=== PATIENT | male | born 1975 | race American Indian/Alaskan Native ===

== ENCOUNTER 2020-03-20 19:27 | Inpatient (IN) | payer OTHER ==
[2020-03-20] MEDS ORDERED: diphenhydrAMINE 50 MG/ML VIAL IV ONE (21:07)
[2020-03-20] MEDS ORDERED: methylPREDNISolone Sod Succinate 125 MG/2 ML INJ ONE (21:07)
[2020-03-20] MEDS ORDERED: diphenhydrAMINE 50 MG/ML VIAL ONE (21:07)
[2020-03-20] MEDS ORDERED: methylPREDNISolone Sod Succinate 125 MG/2 ML INJ IV ONE (21:07)
[2020-03-20] MEDS ORDERED: FAMOTIDINE 20 MG/2 ML INJ IV ONE ×2 (21:07)
--- NOTE | 2020-03-20 21:11 | Emergency Department Report ---
ED Allergic Reaction HPI - General Chief complaint: Allergic Reaction Stated complaint: FACE SWELLING Time Seen by Provider: 03/20/20 20:55 Source: patient Mode of arrival: Ambulatory Limitations: No Limitations - History of Present Illness Initial Comments: Patient is 44 years old male with history of hypertension. Patient presented to the ER complaining of significant upper lip swelling started this afternoon. Patient stated that he took his lisinopril when he found that his blood pressure is high. Patient is currently denying any difficulty breathing or difficulty swallowing. No shortness of breath or wheezing. Patient is alert, oriented x3 and in no acute distress. Patient with obvious upper and lower lips swelling however examination of the tongue and the oral pharyngeal area showed no evidence of swelling. MD Complaint: allergic reaction, facial swelling -: Sudden, This evening Exposure: medication Symptoms: facial swelling, lip swelling Treatment Prior to Arrival: none Previous Allergy History: none - Related Data Previous Rx's Medication Instructions Recorded Last Taken Type lisinopriL [Zestril TAB] 10 mg PO QDAY #30 tablet 10/27/15 Unknown Rx Allergies Allergy/AdvReac Type Severity Reaction Status Date / Time No Known Allergies Allergy Unverified 09/08/14 21:51 ED Review of Systems ROS: Stated complaint: FACE SWELLING Other details as noted in HPI Comment: All other systems reviewed and negative Constitutional: denies: chills, fever Respiratory: denies: cough, shortness of breath, SOB with exertion, SOB at rest, wheezing Cardiovascular: denies: chest pain, palpitations Gastrointestinal: denies: abdominal pain, nausea, vomiting Musculoskeletal: denies: back pain ED Past Medical Hx - Past Medical History Previous Medical History?: Yes Hx Hypertension: Yes Hx Asthma: Yes (pt states he outgrew) - Surgical History Past Surgical History?: Yes Additional Surgical History: hip replacement, multiple ortho surgeries - Social History Smoking Status: Current Every Day Smoker Substance Use Type: Alcohol - Medications Home Medications: Home Medications Medication Instructions Recorded Confirmed Last Taken Type lisinopriL [Zestril TAB] 10 mg PO QDAY #30 tablet 10/27/15 Unknown Rx ED Physical Exam - General Limitations: No Limitations General appearance: alert, in no apparent distress - Head Head exam: Present: atraumatic, normocephalic, normal inspection - Eye Eye exam: Present: normal appearance, PERRL - ENT ENT exam: Present: normal orophraynx, mucous membranes moist, other (Upper and lower lips swelling. No tongue swelling.) - Neck Neck exam: Present: normal inspection, full ROM. Absent: tenderness, meningismus, lymphadenopathy, thyromegaly - Respiratory Respiratory exam: Present: normal lung sounds bilaterally - Cardiovascular Cardiovascular Exam: Present: regular rate, normal rhythm, normal heart sounds - GI/Abdominal GI/Abdominal exam: Present: soft, normal bowel sounds. Absent: distended, tende rness, guarding, rebound, rigid, organomegaly, mass, bruit, pulsatile mass, hernia - Extremities Exam Extremities exam: Present: normal inspection, full ROM, normal capillary refill. Absent: pedal edema, calf tenderness - Back Exam Back exam: Present: normal inspection, full ROM. Absent: CVA tenderness (R), CVA tenderness (L) - Neurological Exam Neurological exam: Present: alert, oriented X3, CN II-XII intact - Psychiatric Psychiatric exam: Present: normal mood - Skin Skin exam: Present: warm, intact, normal color ED Course Vital Signs 03/20/20 03/20/20 20:36 23:32 Temperature 98.8 F Pulse Rate 89 66 Respiratory 18 Rate Blood Pressure 127/82 Blood Pressure 118/73 [left arm] O2 Sat by Pulse 96 94 Oximetry ED Medical Decision Making - Lab Data Result diagrams: 03/20/20 21:21 03/20/20 21:21 - Medical Decision Making Patient is 44 years old male with history of hypertension. Patient presented to the ER complaining of significant upper lip swelling started this afternoon. Patient stated that he took his lisinopril when he found that his blood pressure is high. Patient is currently denying any difficulty breathing or difficulty swallowing. No shortness of breath or wheezing. Patient is alert, oriented x3 and in no acute distress. Patient with obvious upper and lower lips swelling however examination of the tongue and the oral pharyngeal area showed no evidence of swelling. Patient received Benadryl, Solu-Medrol and Pepcid. Patient continues to have significant swelling in his lips however there is no oropharyngeal swelling. There is no airway compromise at this moment. Patient will definitely require to be admitted to ICU for observation and monitoring. I discussed the patient with Dr. Owens, he agreed to admit the patient to the hospital. Critical Care Time: Yes Critical care time in (mins) excluding proc time.: 30 Critical care attestation.: If time is entered above; I have spent that time in minutes in the direct care of this critically ill patient, excluding procedure time. ED Disposition Clinical Impression: Angioedema Disposition: OP ADMIT IP TO THIS HOSP Is pt being admited?: Yes Condition: Stable
[2020-03-20 21:46] LABS: Basophils % (Auto) 0.7 % (0.0-1.8); Eosinophils # (Auto) 0.3 K/mm3 (0.0-0.4); Eosinophils % (Auto) 4.4 % (0.0-4.3); Hematocrit 45.9 % (35.5-45.6); Hemoglobin 15.4 gm/dl (11.8-15.2); Lymphocytes # (Auto) 2.5 K/mm3 (1.2-5.4); Mean Corpuscular HGB Conc 34 % (32-34); Mean Corpuscular Volume 96 fl (84-94); Monocytes # (Auto) 0.8 K/mm3 (0.0-0.8); Monocytes % (Auto) 13.7 % (0.0-7.3); Platelet Count 234 K/mm3 (140-440); Red Cell Distribution Width 15.7 % (13.2-15.2)
[2020-03-20 22:06] LABS: BUN/Creatinine Ratio 8; Blood Urea Nitrogen 6 mg/dL (9-20); Calcium 8.9 mg/dL (8.4-10.2); Hemolysis Index 212
[2020-03-20] MEDS ORDERED: MAGNESIUM HYDROXIDE (MOM) ORAL LIQD UDC PO PRN (23:30)
[2020-03-20] MEDS ORDERED: SODIUM CHLORIDE 0.9% 1000 ML 1,000 ML IV SCH (23:30)
--- NOTE | 2020-03-20 23:37 | History and Physical Report ---
History of Present Illness Date of examination: 03/20/20 Date of admission: 03/20/2020 Chief complaint: Swelling of Lips History of present illness: 44-year-old -[place] male with known history of hypertension presenting to the emergency room today with swelling of his lips after taking lisinopril for his blood pressure today. He denies any difficulty swallowing or breathing, denies any chest pain, no nausea or vomiting, no headache or dizziness. Patient had been on lisinopril in the past and had discontinued it because his blood pressure has been under control but decided to take a dose today because his blood pressure was elevated. Swelling has improved after getting epi, solu- Medrol, Benadryl and Pepcid. Patient is being admitted for angioedema. Past History Past Medical History: hypertension, other (H/O Asthma) Past Surgical History: total hip replacement Social history: smoking (Current daily smoking), alcohol abuse Family history: no significant family history Medications and Allergies Allergies Allergy/AdvReac Type Severity Reaction Status Date / Time lisinopril AdvReac Angioedema Verified 03/21/20 04:28 Home Medications Medication Instructions Recorded Confirmed Last Taken Type Aspirin 325 mg PO ONCE 03/21/20 03/21/20 Unknown History Active Meds: Active Medications Diphenhydramine HCl (Benadryl) 25 mg IV Q6H PRN PRN Reason: Itching Sodium Chloride (Nacl 0.9% 1000 Ml) 1,000 mls @ 75 mls/hr IV DIRECT RAISA Magnesium Hydroxide (Milk Of Magnesia) 30 ml PO Q4H PRN PRN Reason: Constipation Sodium Chloride (Sodium Chloride Flush Syringe 10 Ml) 10 ml IV BID RAISA Sodium Chloride (Sodium Chloride Flush Syringe 10 Ml) 10 ml IV PRN PRN PRN Reason: LINE FLUSH Review of Systems Constitutional: no fever, no chills Ears, nose, mouth and throat: no nasal congestion, no sore throat Cardiovascular: no chest pain, no palpitations Respiratory: no cough, no shortness of breath Gastrointestinal: no abdominal pain, no nausea, no vomiting, no diarrhea Genitourinary Male: no dysuria, no hematuria, no flank pain Musculoskeletal: no neck pain, no low back pain Integumentary: no rash, no pruritis Neurological: no headaches, no confusion Psychiatric: no anxiety, no depression Exam - Constitutional Vitals: Temp Pulse Resp BP Pulse Ox 98.8 F 66 18 118/73 94 03/20/20 20:36 03/20/20 23:32 03/20/20 20:36 03/20/20 23:32 03/20/20 23:32 General appearance: Present: no acute distress, well-nourished, other (Swollen lips) - EENT Eyes: Present: PERRL, EOM intact. Absent: scleral icterus ENT: hearing intact, clear oral mucosa, dentition normal - Neck Neck: Present: supple, normal ROM - Respiratory Respiratory effort: normal Respiratory: bilateral: CTA - Cardiovascular Rhythm: regular Heart Sounds: Present: S1 & S2. Absent: gallop, systolic murmur, diastolic murmur, rub - Extremities Extremities: no ischemia, pulses intact, pulses symmetrical, No edema, Full ROM Peripheral Pulses: within normal limits - Abdominal General gastrointestinal: Present: soft, non-tender, non-distended, normal bowel sounds - Integumentary Integumentary: Present: clear, warm, dry. Absent: rash - Musculoskeletal Musculoskeletal: strength equal bilaterally - Psychiatric Psychiatric: appropriate mood/affect, intact judgment & insight, memory intact, cooperative - Neurologic Neurologic: CNII-XII intact, no focal deficits, moves all extremities Results - Labs CBC & Chem 7: 03/21/20 04:23 03/21/20 04:23 Labs: Abnormal lab results 03/20/20 03/20/20 Range/Units 21:21 21:21 Hgb 15.4 H (11.8-15.2) gm/dl Hct 45.9 H (35.5-45.6) % MCV 96 H (84-94) fl RDW 15.7 H (13.2-15.2) % Lymph % (Auto) 42.0 H (13.4-35.0) % [place] % (Auto) 13.7 H (0.0-7.3) % Eos % (Auto) 4.4 H (0.0-4.3) % Seg Neutrophils % 39.2 L (40.0-70.0) % Sodium 134 L (137-145) mmol/L Chloride 96.3 L (98-107) mmol/L BUN 6 L (9-20) mg/dL Assessment and Plan - Patient Problems (1) Angioedema Current Visit: Yes Status: Acute Plan to address problem: Patient will be closely monitored. Will place on Benadryl as needed Will discontinue GRACIELA inhibitor (2) Hypertension Current Visit: Yes Status: Acute Plan to address problem: We will monitor vital signs closely. Blood pressure appears stable. (3) DVT prophylaxis Current Visit: Yes Status: Acute (4) Full code status Current Visit: Yes Status: Acute
[2020-03-20] MEDS ORDERED: SODIUM CHLORIDE 0.9% 1000 ML 1,000 ML ONE (23:48)
[2020-03-21] MEDS ORDERED: diphenhydrAMINE 50 MG/ML VIAL ONE (01:08)
[2020-03-21] MEDS: diphenhydrAMINE 50 MG/ML VIAL IV PRN ×3 (01:09→22:27)
[2020-03-21 04:44] LABS: Basophils % (Auto) 0.4 % (0.0-1.8); Eosinophils % (Auto) 0.3 % (0.0-4.3); Hematocrit 50.5 % (35.5-45.6); Hemoglobin 16.7 gm/dl (11.8-15.2); Lymphocytes # (Auto) 0.7 K/mm3 (1.2-5.4); Lymphocytes % (Auto) 16.1 % (13.4-35.0); Mean Corpuscular HGB Conc 33 % (32-34); Mean Corpuscular Volume 97 fl (84-94); Monocytes # (Auto) 0.1 K/mm3 (0.0-0.8); Monocytes % (Auto) 2.3 % (0.0-7.3); Platelet Count 236 K/mm3 (140-440); Red Cell Distribution Width 15.8 % (13.2-15.2)
[2020-03-21 04:53] LABS: BUN/Creatinine Ratio 9; Blood Urea Nitrogen 8 mg/dL (9-20); Calcium 8.9 mg/dL (8.4-10.2); Hemolysis Index 45
[2020-03-21 04:56] LABS: INR 0.96 (0.87-1.13)
--- NOTE | 2020-03-21 08:47 | Progress Note ---
Assessment and Plan - Patient Problems (1) Angioedema Current Visit: Yes Status: Acute Plan to address problem: Patient with angioedema continue steroids Solu-Medrol 80 mg IV every 8 will change to p.o. for discharge in the a.m. Blood pressure stable discontinue lisinopril. (2) DVT prophylaxis Current Visit: Yes Status: Acute (3) Full code status Current Visit: Yes Status: Acute (4) Hypertension Current Visit: Yes Status: Acute Plan to address problem: No change in blood pressure medications he is normotensive to low now. We will follow-up with primary care physician outside for further dose titration. Subjective Date of service: 03/21/20 Principal diagnosis: Angioedema Interval history: 44-year-old male with history of hypertension presented with episode of angioedema after taking lisinopril. Patient treated with epinephrine Solu- Medrol Benadryl and Pepcid. Has had significant improvement. Patient currently resting comfortably no difficulty breathing. Eyes are really swollen lips are swollen but no tongue swelling. Patient airway is doing well. Objective - Constitutional Vitals: Vital Signs - 12hr 03/20/20 03/21/20 03/21/20 23:32 02:00 03:00 Temperature Pulse Rate 66 75 81 Respiratory Rate Blood Pressure Blood Pressure 118/73 102/79 112/71 [left arm] O2 Sat by Pulse 94 98 95 Oximetry 03/21/20 03/21/20 03/21/20 03:18 04:00 04:18 Temperature Pulse Rate 62 Respiratory Rate Blood Pressure Blood Pressure 108/73 [left arm] O2 Sat by Pulse 96 96 87 Oximetry 03/21/20 03/21/20 03/21/20 04:31 04:41 04:51 Temperature Pulse Rate Respiratory Rate Blood Pressure 108/73 108/73 108/73 Blood Pressure [left arm] O2 Sat by Pulse 98 96 95 Oximetry 03/21/20 03/21/20 03/21/20 05:26 05:30 05:35 Temperature Pulse Rate 70 75 Respiratory 14 22 Rate Blood Pressure 129/79 Blood Pressure [left arm] O2 Sat by Pulse 91 94 98 Oximetry 03/21/20 03/21/20 03/21/20 05:41 05:46 05:51 Temperature 97.7 F Pulse Rate 79 69 Respiratory 12 19 15 Rate Blood Pressure 129/79 129/79 Blood Pressure [left arm] O2 Sat by Pulse 95 98 98 Oximetry 03/21/20 03/21/20 03/21/20 06:00 06:11 06:21 Temperature Pulse Rate 86 73 67 Respiratory 12 20 18 Rate Blood Pressure 113/80 113/80 113/80 Blood Pressure [left arm] O2 Sat by Pulse 96 96 97 Oximetry 03/21/20 03/21/20 03/21/20 06:31 06:41 06:51 Temperature Pulse Rate 56 L 71 76 Respiratory 18 20 22 Rate Blood Pressure 113/80 113/80 113/80 Blood Pressure [left arm] O2 Sat by Pulse 99 95 94 Oximetry 03/21/20 03/21/20 07:00 08:00 Temperature 98.2 F Pulse Rate 75 Respiratory 20 Rate Blood Pressure 106/69 Blood Pressure [left arm] O2 Sat by Pulse 92 Oximetry General appearance: Present: no acute distress, well-nourished - EENT Eyes: PERRL, EOM intact ENT: hearing intact, clear oral mucosa, other (Eyes are swollen consistent with angioedema profound lip swelling. No tongue swelling. Patient has good air entry.) Ears: bilateral: normal - Neck Neck: supple, normal ROM - Respiratory Respiratory effort: normal Respiratory: bilateral: CTA - Breasts Breasts: normal - Cardiovascular Rhythm: regular Heart Sounds: Present: S1 & S2. Absent: gallop, rub Extremities: pulses intact, No edema, normal color, Full ROM - Gastrointestinal General gastrointestinal: Present: soft, non-tender, non-distended, normal bowel sounds - Genitourinary Male genitourinary: normal - Integumentary Integumentary: clear, warm, dry - Musculoskeletal Musculoskeletal: 1, strength equal bilaterally - Neurologic Neurologic: moves all extremities - Psychiatric Psychiatric: memory intact, appropriate mood/affect, intact judgment & insight - Labs CBC & Chem 7: 03/21/20 04:23 03/21/20 04:23 Labs: Abnormal lab results 03/20/20 03/20/20 03/21/20 Range/Units 21:21 21:21 04:23 WBC 4.1 L (4.5-11.0) K/mm3 RBC 5.20 H (3.65-5.03) M/mm3 Hgb 15.4 H 16.7 H (11.8-15.2) gm/dl Hct 45.9 H 50.5 H (35.5-45.6) % MCV 96 H 97 H (84-94) fl RDW 15.7 H 15.8 H (13.2-15.2) % Lymph % (Auto) 42.0 H (13.4-35.0) % [place] % (Auto) 13.7 H (0.0-7.3) % Eos % (Auto) 4.4 H (0.0-4.3) % Lymph # (Auto) 0.7 L (1.2-5.4) K/mm3 Seg Neutrophils % 39.2 L 80.9 H (40.0-70.0) % Sodium 134 L (137-145) mmol/L Chloride 96.3 L (98-107) mmol/L BUN 6 L (9-20) mg/dL Glucose (75-100) mg/dL 03/21/20 Range/Units 04:23 WBC (4.5-11.0) K/mm3 RBC (3.65-5.03) M/mm3 Hgb (11.8-15.2) gm/dl Hct (35.5-45.6) % MCV (84-94) fl RDW (13.2-15.2) % Lymph % (Auto) (13.4-35.0) % [place] % (Auto) (0.0-7.3) % Eos % (Auto) (0.0-4.3) % Lymph # (Auto) (1.2-5.4) K/mm3 Seg Neutrophils % (40.0-70.0) % Sodium 134 L (137-145) mmol/L Chloride 97.0 L (98-107) mmol/L BUN 8 L (9-20) mg/dL Glucose 124 H (75-100) mg/dL
[2020-03-21] MEDS: methylPREDNISolone Sod Succinate 125 MG/2 ML INJ IV SCH ×3 (10:59→22:27)
[2020-03-21] MEDS: FAMOTIDINE 20 MG TAB PO SCH ×2 (10:59→22:26)
[2020-03-21] MEDS ORDERED: ENOXAPARIN 40 MG/0.4 ML INJ SUB-Q SCH (22:00)
[2020-03-22] MEDS: methylPREDNISolone Sod Succinate 125 MG/2 ML INJ IV SCH (06:10)
--- NOTE | 2020-03-22 08:45 | Discharge Summary ---
Providers - Providers Date of Admission: 03/20/20 23:12 Date of discharge: 03/22/20 Attending physician: KIT ARTEAGA 03/20/20 23:30 Consult to Dietitian/Nutrition [CONS] Routine Physician Instructions: Reason For Exam: Reason for Consult: Diet education [facility] Condition: Good Hospital course: 44-year-old male presented with angioedema of the eyes lips with shortness of breath. Given Solu-Medrol Pepcid epinephrine patient made significant turnaround. Etiology was lisinopril. Discontinue lisinopril. No need for additional medicine at this time because blood pressure has been low to normotensive. Disposition: - TO HOME OR SELFCARE - Discharge Diagnoses (1) Angioedema Status: Acute Comment: Patient angioedema secondary to lisinopril. Will discharge home on prednisone taper as well as Atarax for itching pruritus and Pepcid. (2) DVT prophylaxis Status: Acute (3) Full code status Status: Acute (4) Hypertension Status: Acute Comment: Will give amlodipine for blood pressure and follow with primary care physician on Tuesday. Core Measure Documentation - Palliative Care Palliative Care/ Comfort Measures: Not Applicable - Core Measures Any of the following diagnoses?: none Exam - Constitutional Vitals: Temp Pulse Resp BP Pulse Ox 98.0 F 57 L 20 146/93 98 03/22/20 05:30 03/22/20 05:30 03/22/20 05:30 03/22/20 05:30 03/22/20 05:30 General appearance: Present: no acute distress, well-nourished - EENT Eyes: Present: PERRL ENT: hearing intact, clear oral mucosa, other (Significantly decreased edema no involvement of tongue. Lips down significantly as well. No wheezing.) - Neck Neck: Present: supple, normal ROM - Respiratory Respiratory effort: normal Respiratory: bilateral: CTA - Cardiovascular Heart Sounds: Present: S1 & S2. Absent: rub, click - Extremities Extremities: pulses symmetrical, No edema Peripheral Pulses: within normal limits - Abdominal General gastrointestinal: Present: soft, non-tender, non-distended, normal bowel sounds Male genitourinary: Present: normal - Integumentary Integumentary: Present: clear, warm, dry - Musculoskeletal Musculoskeletal: gait normal, strength equal bilaterally - Psychiatric Psychiatric: appropriate mood/affect, intact judgment & insight - Neurologic Neurologic: CNII-XII intact, moves all extremities Plan Activity: no restrictions, other (Discontinue lisinopril.) Weight Bearing Status: Full Weight Bearing Diet: regular, low salt Follow up with: DAVID SCHROEDER MD [Primary Care Provider] - 3-5 Days Prescriptions: amLODIPine 5 mg PO DAILY #30 tab predniSONE [Deltasone] 10 mg PO QDAY #20 tablet Famotidine [Pepcid] 20 mg PO BID #14 tablet
[2020-03-22] MEDS: FAMOTIDINE 20 MG TAB PO SCH (09:25)
[2020-03-22] MEDS ORDERED: CETIRIZINE 10 MG TAB PO SCH (10:00)
[2020-03-22 13:13] VITALS: BP 141/72
[2020-03-22] MEDS ORDERED: predniSONE 10 MG TAB PO SCH (18:00)
== END 2020-03-22 13:13 | disposition home or self-care (01) | DRG 916 ==
LOC: ED 19:27 → IMCU 23:12 → CC1 03-21 04:34 → 3A 03-21 12:03
PROVIDERS: ADMIT Internal Medicine Geriatric Medicine; ATTEND Internal Medicine
DX: T78.3XXA Angioneurotic edema, initial encounter (principal); T46.4X5A Adverse effect of angiotensin-converting-enzyme inhibitors, initial encounter; I10 Essential (primary) hypertension; F17.200 Nicotine dependence, unspecified, uncomplicated; F10.10 Alcohol abuse, uncomplicated; J45.909 Unspecified asthma, uncomplicated; Y92.89 Other specified places as the place of occurrence of the external cause; Z79.82 Long term (current) use of aspirin
CPT/HCPCS: 36415; 80048; 85025; 85610; 96361; 96374; 96375; 99406; G0378; J1200; J1650; J2930; J7030